=== PATIENT | female | born 1965 | race Caucasian/White ===

== ENCOUNTER → 2021-02-19 | Day surgery (SDC) | payer MEDICARE, OTHER ==
[~2021-02-19] MED LIST: BACLOFEN20 MG PO; DICLOFENAC SODI75 MG PO; GABAPENTIN600 MG PO; GLUCOPHAGE 500500 MG PO; HYDROCODON-ACE1 EAC4 PO; IBUPROFEN800 MG PO; LISINOPRIL-HCT1 EAC1 PO; MECLIZINE HCL25 M1 PO; PLAVIX75 MG PO; PRAVASTATIN SOD40 MG PO; PROTONIX40 M1 PO; ROPINIROLE HCL1 MG PO
== END | disposition home or self-care (01) ==
LOC: OR 07:51
DX: M51.16 Intervertebral disc disorders with radiculopathy, lumbar region (principal); M47.26 Other spondylosis with radiculopathy, lumbar region; Z90.710 Acquired absence of both cervix and uterus; Z20.822 Contact with and (suspected) exposure to COVID-19
CPT/HCPCS: 72202; 76000; 82962; J1040; Q9967

== ENCOUNTER → 2021-06-11 | Day surgery (SDC) | payer MEDICARE, OTHER | END | disposition home or self-care (01) | LOC: OR 07:30 | DX: M46.1 Sacroiliitis, not elsewhere classified (principal); M51.37 Other intervertebral disc degeneration, lumbosacral region; M47.27 Other spondylosis with radiculopathy, lumbosacral region; Z79.891 Long term (current) use of opiate analgesic; Z79.899 Other long term (current) drug therapy | CPT/HCPCS: 72202; 76000; 82962; J1040; Q9967 ==